=== PATIENT | male | born 1975 | race Caucasian/White ===

== ENCOUNTER 2019-05-26 20:34 | Emergency (ER) | payer MEDICAID ==
[~2019-05-26] VITALS: Ht 160 cm; Wt 70.5 kg
[~2019-05-26 20:34] MED LIST: ATOR20TA86 PO; METF-960 PO
[2019-05-26] MEDS ORDERED: LISI-660 PO (20:52)
[2019-05-26] MEDS ORDERED: ASPI81 PO (20:52)
[2019-05-26] MEDS ORDERED: ATOR40TA28 PO (20:52)
[2019-05-26] MEDS ORDERED: METF-960 PO (20:52)
[2019-05-26 20:56] LABS: GLUCOSE,POINT OF CARE 264 MG/DL (70-110)
[2019-05-26 22:30] VITALS: BP 135/82
== END 2019-05-26 22:30 | disposition home or self-care (01) ==
LOC: EMS 20:34
DX: M17.12 Unilateral primary osteoarthritis, left knee (principal); I10 Essential (primary) hypertension; E11.9 Type 2 diabetes mellitus without complications; E78.00 Pure hypercholesterolemia, unspecified; Z79.84 Long term (current) use of oral hypoglycemic drugs; Z79.82 Long term (current) use of aspirin
CPT/HCPCS: 29505

== ENCOUNTER 2021-08-25 00:56 | Emergency (ER) | payer MEDICAID, SELFPAY ==
[~2021-08-25] VITALS: Ht 152.4 cm; Wt 63.6 kg
[~2021-08-25 00:56] MED LIST changes: +ASPI-1450 PO; -ATOR20TA86 PO; +ATOR40TA28 PO; +LISI-892 PO; +METF-1211 PO; -METF-960 PO
[2021-08-25 01:17] LABS: COVID AG,FIA SOURCE NASOPHARYNGEAL
[2021-08-25] MEDS ORDERED: IBUPROFEN 600 MG TABLET PO ONE (03:15)
[2021-08-25] MEDS ORDERED: GuaiFENesin/D-METHORPHAN [SUGAR-FREE] 200-20MG/10 ML SYRUP UDCUP PO ONE (03:15)
[2021-08-25] MEDS ORDERED: ACETAMINOPHEN 500 MG TABLET PO ONE (03:15)
[2021-08-25 03:26] VITALS: BP 149/70
[2021-08-25 03:36] LABS: GLUCOSE,POINT OF CARE 265 MG/DL (70-110)
== END 2021-08-25 03:27 | disposition home or self-care (01) ==
LOC: EMS 00:57
DX: U07.1 COVID-19 (principal); E11.65 Type 2 diabetes mellitus with hyperglycemia; I10 Essential (primary) hypertension; E78.00 Pure hypercholesterolemia, unspecified; Z79.82 Long term (current) use of aspirin; Z79.84 Long term (current) use of oral hypoglycemic drugs; Z79.899 Other long term (current) drug therapy
CPT/HCPCS: 82962; 87426; 99284; U0003

== ENCOUNTER 2021-08-31 16:24 | Emergency (ER) | payer SELFPAY | END 2021-08-31 19:24 | disposition left against medical advice (07) | LOC: EMS 16:31 | DX: Z20.822 Contact with and (suspected) exposure to COVID-19 (principal); Z53.21 Procedure and treatment not carried out due to patient leaving prior to being seen by health care provider ==

== ENCOUNTER 2023-10-04 16:37 | Emergency (ER) | payer SELFPAY ==
[2023-10-05 00:46] LABS: GLUCOMETER DEV NAME(LOC) ERT.5; GLUCOSE,POINT OF CARE 277 MG/DL (70-110)
== END 2023-10-04 16:38 | disposition left against medical advice (07) ==
LOC: EMS 16:38
DX: Z53.21 Procedure and treatment not carried out due to patient leaving prior to being seen by health care provider (principal)
CPT/HCPCS: 82962

== ENCOUNTER 2023-10-04 16:44 | Emergency (ER) | payer SELFPAY ==
[~2023-10-04] VITALS: Ht 160 cm; Wt 70.5 kg
[2023-10-04 16:52] VITALS: BP 116/56; PULSE 74; RESP 16; TEMP 98.4
== END 2023-10-04 17:09 | disposition home or self-care (01) ==
LOC: EMS 16:49
DX: S61.411D Laceration without foreign body of right hand, subsequent encounter (principal); E11.9 Type 2 diabetes mellitus without complications; E78.00 Pure hypercholesterolemia, unspecified; I10 Essential (primary) hypertension; Z48.02 Encounter for removal of sutures; X58.XXXD Exposure to other specified factors, subsequent encounter
CPT/HCPCS: 82962; 99281